=== PATIENT | male | born 1990 | race African-American/Black ===

== ENCOUNTER 2025-03-25 13:45 | Emergency (ER) | payer SELFPAY ==
[~2025-03-25] VITALS: Ht 180.3 cm; Wt 90.0 kg
[2025-03-25 13:51] VITALS: O2SAT 100
[2025-03-25] MEDS: ACETAMINOPHEN 325MG TABLET PO ONE (14:15)
[2025-03-25 15:50] VITALS: BP 117/81; PULSE 70; RESP 18; TEMP 36.7; O2SAT 99
== END 2025-03-25 15:52 | disposition home or self-care (01) ==
LOC: ER 13:45
DX: S09.90XA Unspecified injury of head, initial encounter (principal); M25.512 Pain in left shoulder; V89.2XXA Person injured in unspecified motor-vehicle accident, traffic, initial encounter; Y93.89 Activity, other specified; Y92.89 Other specified places as the place of occurrence of the external cause; Y99.8 Other external cause status
CPT/HCPCS: 73030; 99284